=== PATIENT | female | born 1975 | race Caucasian/White ===

== ENCOUNTER 2023-12-03 06:28 | Day surgery (SDC) | payer OTHER ==
[2023-11-27 17:20] VITALS: BMI 29.0
[2023-12-03] MEDS ORDERED: MIDAZOLAM HCL 2 MG/2 ML SINGLE DOSE VIAL ONE (07:06)
[2023-12-03] MEDS ORDERED: EPINEPHrine 1:1,000 1,000 MCG/ML ML ONE (07:10)
[2023-12-03] MEDS ORDERED: BUPIVACAINE HCL/PF 0.25% (2.5MG/ML) 10 ML VIAL ONE (07:10)
[2023-12-03] MEDS ORDERED: VANCOMYCIN 1,000 MG VIAL (RESTRICTED TO ID ONLY) ONE (07:10)
[2023-12-03] MEDS ORDERED: SUCCINYLCHOLINE CHLORIDE 200 MG/10 ML SYRINGE ONE (07:12)
[2023-12-03] MEDS ORDERED: PROPOFOL 20 ML ONE (07:12)
[2023-12-03] MEDS ORDERED: ACETAMINOPHEN INJECTION 100 ML ONE (07:24)
[2023-12-03] MEDS ORDERED: ROPIVACAINE HCL/PF 100 MG/20 ML VIAL ONE (07:24)
[2023-12-03] MEDS ORDERED: DEXAMETHASONE SOD PHOSPHATE 4 MG/1 ML VIAL ONE (08:23)
[2023-12-03] MEDS ORDERED: KETOROLAC TROMETHAMINE 30 MG/1 ML VIAL ONE (08:23)
[2023-12-03] MEDS ORDERED: ceFAZolin SODIUM 1 GM VIAL ONE (08:23)
[2023-12-03] MEDS ORDERED: ONDANSETRON 4 MG/2 ML VIAL ONE (08:23)
[2023-12-03] MEDS ORDERED: FENTANYL CITRATE/PF 50 MCG/ML VIAL ONE ×2 (10:52→11:02)
[2023-12-03] MEDS ORDERED: oxyCODONE HCL 5 MG TABLET PO PRN (10:57)
[2023-12-03] MEDS: oxyCODONE HCL 5 MG TABLET PO PRN (11:15)
[2023-12-03] MEDS: ONDANSETRON 4 MG/2 ML VIAL IVPUSH PRN (11:15)
[2023-12-03 13:07] VITALS: RESP 19; TEMP 97.6
[2023-12-03 13:11] VITALS: BP 119/72; PULSE 74
== END 2023-12-03 12:55 | disposition home or self-care (01) ==
LOC: FASU 06:28
PROVIDERS: ATTEND Orthopaedic Surgery Sports Medicine
PROC: 0MRP47Z Replacement of Left Knee Bursa and Ligament with Autologous Tissue Substitute, Percutaneous Endoscopic Approach (ICD-10-PCS; principal; 2023-12-03 08:13)
PROC: 0SBD4ZZ Excision of Left Knee Joint, Percutaneous Endoscopic Approach (ICD-10-PCS; 2023-12-03 08:13)
DX: S83.512A Sprain of anterior cruciate ligament of left knee, initial encounter (principal); S83.242A Other tear of medial meniscus, current injury, left knee, initial encounter; X58.XXXA Exposure to other specified factors, initial encounter; Y93.9 Activity, unspecified; Y92.9 Unspecified place or not applicable
CPT/HCPCS: 81025; 94760; C1713; J0131